=== PATIENT | female | born 1970 | race Asian ===

== ENCOUNTER → 2016-10-17 | Outpatient (CLI) | payer OTHER ==
--- NOTE | 2016-10-17 11:46 | RAD ---
Pelvic ultrasound, 10/17/2016: History: Vaginal bleeding, recent Transabdominal and transvaginal scans were obtained. The uterus measures 10.8 x 4.9 x 5.7 cm. There is heterogeneous thickening of the central uterine echo complex. It measures 2.5 cm. No definite blood flow is seen within this process. The ovaries are of normal size. No adnexal mass is seen. No free fluid is evident in the pelvis. IMPRESSION: Heterogeneous thickening of the central echo complex compatible with retained products of conception and/or blood clot. Gestational trophoblastic disease is a less likely possibility.
== END | disposition home or self-care (01) ==
LOC: US 09:11
PROVIDERS: ATTEND Physician Assistant
DX: O72.1 Other immediate postpartum hemorrhage (principal)
CPT/HCPCS: 76830; 76856

== ENCOUNTER 2016-10-24 10:29 | Day surgery (SDC) | payer OTHER ==
[~2016-10-24] VITALS: Ht 149.9 cm; Wt 80.3 kg
[~2016-10-24 10:29] MED LIST: CEFAZOLIN 2GM PREMIX 50 ML IV PRN; OXYTOCIN 10 UNIT/ML VIAL. ONE; VASOPRESSIN 20 UNIT/ML VIAL. ONE
[2016-10-24] MEDS ORDERED: IV RINGERS,LACTATED 1000ML 1,000 ML IV SCH (10:40)
[2016-10-24] MEDS ORDERED: MIDAZOLAM HCL/PF 2 MG/2 ML VIAL. IV PRN (10:45)
[2016-10-24] MEDS ORDERED: FENTANYL PF 100 MCG/2 ML VIAL. IV PRN ×2 (10:45)
[2016-10-24] MEDS ORDERED: LIDOCAINE 1% 1 ML SYRINGE. ID PRN (10:45)
[2016-10-24 11:18] LABS: NEG OBC UR NEG; POS OBC UR POS
[2016-10-24 11:22] LABS: BASO % 1 % (0-3); EOS % 1 % (0-3); HEMATOCRIT 40.4 % (36.0-47.0); HEMOGLOBIN 13.2 g/dL (12.0-15.5); LYMPH # 1.7 x10^3/uL (1.0-4.8); LYMPH % 28 % (24-48); MEAN CORPUSCULAR HEMOGLOBIN 25 pg (25-35); MEAN CORPUSCULAR HGB CONC 33 g/dL (31-37); MEAN CORPUSCULAR VOLUME 77 fL (79-100); MONO % 5 % (0-9); NEUT % 65 % (31-73); PLATELET COUNT 365 x10^3/uL (140-400); RED BLOOD COUNT 5.21 x10^6/uL (3.50-5.40); RED CELL DISTRIBUTION WIDTH 13.9 % (11.5-14.5)
[2016-10-24] MEDS ORDERED: MIDAZOLAM HCL/PF 2 MG/2 ML VIAL. ONE (11:38)
[2016-10-24] MEDS ORDERED: FAMOTIDINE 20 MG/2 ML VIAL ONE (11:39)
[2016-10-24] MEDS ORDERED: PROPOFOL 20 ML IV ONE (11:39)
[2016-10-24] MEDS ORDERED: ONDANSETRON PF 4 MG/2 ML VIAL. ONE (11:39)
[2016-10-24] MEDS ORDERED: DEXAMETHASONE SOD PHOS 20 MG/5 ML VIAL. ONE (11:39)
[2016-10-24] MEDS ORDERED: KETOROLAC 60 MG/2 ML INJ FOR OR. ONE (11:39)
[2016-10-24] MEDS ORDERED: LIDOCAINE 2% 100 MG/5 ML SYRINGE. ONE (11:39)
[2016-10-24] MEDS ORDERED: SEVOFLURANE 16 TO 30 MINUTES. IH ONE (12:55)
--- NOTE | 2016-10-24 13:04 | PDOC ---
BRIEF OPERATIVE NOTE Pre-Op Diagnosis Incomplete Post-Op Diagnosis Same Procedure Performed Suction D&C Surgeon Dr. Dinh Anesthesia Type: General Blood Loss 50 ml Specimens Obtained POC Findings POC Complications none Additional Remarks pt. ELIZABETH Nicolas Jr, MD Oct 24, 2016 13:04
--- NOTE | 2016-10-24 13:04 | DISCH ---
DISCHARGE INSTRUCTIONS Condition on Discharge Condition on Discharge: Stable Activity After Discharge Activity Instructions for Disc: Activity as tolerated Lifting Instructions after Dis: No heavy lifting Driving Instructions after Dis: Do not drive today Diet after Discharge Diet after Discharge: Regular Contacting the DRBiju after DC Call your doctor for: Concerns you may have Follow-Up Follow up with: Dr. Dinh in 3 weeks. ELIZABETH DINH Jr, MD Oct 24, 2016 13:04
[2016-10-24] MEDS ORDERED: OXYC-323 PO (13:15)
[2016-10-24] MEDS ORDERED: OXYCODONE/APAP 5/325 TABLET. ONE (13:29)
[2016-10-24] MEDS ORDERED: OXYCODONE/APAP 5/325 TABLET. PO ONE (13:30)
[2016-10-24 14:05] VITALS: BP 118/78
--- NOTE | 2016-10-24 15:27 | OP ---
DATE OF SURGERY: PREOPERATIVE DIAGNOSIS: Incomplete . POSTOPERATIVE DIAGNOSIS: Incomplete . PROCEDURE: Suction D and C. SURGEON: Elizabeth Dinh M.D. ANESTHESIA: LMA. ESTIMATED BLOOD LOSS: 50 mL. COMPLICATIONS: None. FINDINGS: Products of conception. SUMMARY: A 46-year-old 14, para 10, elected for 3 at about 7-8 weeks gestation who presented to clinic due to failed medical elective . The patient had been bleeding for the last 2 months off and on and also demonstrated retained products of conception on pelvic sonogram. She was counseled on suction D and C risks, benefits and expectations and voiced a clear understanding to proceed. DESCRIPTION OF PROCEDURE: The patient was taken to the surgery suite and placed in dorsal lithotomy position. She was prepped with Betadine and draped in sterile fashion. After adequate anesthesia, weighted speculum and curved Кеатерина placed vaginally. The anterior lip of the cervix was grasped with a single tooth tenaculum. Cervix was dilated with Shawna dilators up to size of 8. Curved tip curette was then placed, using the suction of 600 mmHg, removing blood clot and products of conception in a circumferential manner, sharp curettage took place in a circumferential manner until a fine gritty surface was palpated. The suction curette was once again passed removing blood products and products of conception. The uterus was then palpated firm. Single tooth tenaculum and weighted speculum were removed. The patient tolerated the procedure well and was taken to recovery room in stable condition. Sponge, needle counts correct x 3. ELIZABETH DINH MD DR: JAS/yury JOB#: [id number] / [id number]
--- NOTE | 2016-10-25 16:41 | PATHOLOGY ---
PATHOLOGY REPORT * * * * * * * * FINAL DIAGNOSIS: Uterine contents, endomyometrial and cervical tissue, D and C: - Chronic endometritis with nodular foci of previous implantation site. COMMENT: There are no chorionic villi or tissues identified. (JPM:csd; d/t: 10/25/2016) REPORT ELECTRONICALLY SIGNED BY: Casey Palm M.D. DATE/TIME: 10/25/2016 16:40 * * * * * * * * GROSS PATHOLOGY: Received in formalin labeled "Arley Price, products of conception," is a 2.8 x 2.1 x 0.3 cm aggregate of abundant blood clot admixed with spongiform, pink-marrero tissue. tissue is not present. Vesicular structures are not grossly identified. The specimen is submitted entirely in cassette A1. (KAH; 10/24/2016) INITIAL CPT CODE(S): A; 74059 Professional services [place] [address] Technical services performed by [facility] at [address] [place] [address] [address] [address]. SPECIMEN(S) RECEIVED: A.Products of conception CLINICAL HISTORY: Incomplete PATIENT: ARLEY PRICE /AGE: 1004/15/1970 (Age: 46) PATIENT #: [id number] ALT CASE #: SPECIMEN COLLECTION DATE: 10/24/2016 SPECIMEN RECEIVED DATE: 10/24/2016 [facility] - [address] [place] [address] - PHONE: [phone] * * * END OF REPORT * * *
== END 2016-10-24 14:15 | disposition home or self-care (01) ==
LOC: SURG 10:29
PROVIDERS: ATTEND Obstetrics & Gynecology
DX: O03.4 Incomplete spontaneous abortion without complication (principal); Z72.89 Other problems related to lifestyle
CPT/HCPCS: 36415; 59812; 81025; 85027; J0690; J1100; J1885; J2250; J2405; J2704; S0028; J2590; J3490